=== PATIENT | female | born 1985 | race Caucasian/White ===

== ENCOUNTER → 2016-12-21 | Outpatient (CLI) | payer OTHER ==
[~2016-12-21] MED LIST: HYDR-3240 PO; IBUP-1222 PO; PNV91TAB3 PO
[2016-12-21 07:52] LABS: HEMATOCRIT 37.6 % (34.6-47.8); HEMOGLOBIN 12.7 g/dL (11.7-16.4); WHITE BLOOD COUNT 7.1 x10^3/uL (3.4-10)
[2016-12-21 08:18] LABS: HIV 1&2 ANTIBODY SCREEN Nonreactive (Nonreactive); HIV-1 p24 ANTIGEN Nonreactive (Nonreactive)
== END | disposition home or self-care (01) ==
LOC: LAB 07:27
PROVIDERS: ATTEND Nurse Practitioner Obstetrics & Gynecology
DX: Z34.81 Encounter for supervision of other normal pregnancy, first trimester (principal)
CPT/HCPCS: 36415; 85025; 86592; 86703; 86762; 86850; 86900; 87086; 87340; 87899; G0435

== ENCOUNTER 2017-07-07 10:25 | Inpatient (IN) | payer OTHER ==
[2017-07-07] MEDS ORDERED: D5%-LACTATED RINGERS 1,000 ML IV SCH (11:48)
[2017-07-07] MEDS ORDERED: OXYTOCIN 30U/ 0.9% NaCL 500ML 500 ML IV ONE (11:48)
[2017-07-07] MEDS ORDERED: ONDANSETRON 2MG/ML, 2ML IVPush PRN (12:00)
[2017-07-07] MEDS ORDERED: FENTANYL PF 100 MCG/2ML IV PRN (12:00)
[2017-07-07] MEDS ORDERED: FENTANYL PF 100 MCG/2ML IVPush PRN (12:00)
[2017-07-07] MEDS: LACTATED RINGERS 1,000 ML IV SCH ×2 (12:12→16:29)
[2017-07-07 12:13] LABS: BASOPHILS # (AUTO) 0.02 x10^3/uL (0-0.1); BASOPHILS % (AUTO) 0 % (0-1); EOSINOPHILS # (AUTO) 0.04 x10^3/uL (0-0.4); EOSINOPHILS % (AUTO) 0 % (1-7); LYMPHOCYTES # (AUTO) 1.26 x10^3/uL (1-3.4); LYMPHOCYTES % (AUTO) 12 % (22-44); MD NO; MEAN CORPUSCULAR HEMOGLOBIN 30.3 pg (27.0-34.8); MEAN CORPUSCULAR HGB CONC 33.8 g/dL (32.4-35.8); MEAN CORPUSCULAR VOLUME 89.7 fL (80-100); MEAN PLATELET VOLUME 11.6 fL (7.4-10.4); MONOCYTES # (AUTO) 0.54 x10^3/uL (0.2-0.8); MONOCYTES % (AUTO) 5 % (2-9); NEUTROPHILS # (AUTO) 9.13 x10^3/uL (1.8-6.8); NEUTROPHILS % (AUTO) 83 % (42-75); PLATELET COUNT 214 x10^3/uL (130-400); RED BLOOD COUNT 4.46 x10^6/uL (3.82-5.3); RED CELL DISTRIBUTION WIDTH 13.1 % (9.6-15.2)
[2017-07-07] MEDS ORDERED: LIDOCAINE 1%, 20ML ONE (12:30)
[2017-07-07] MEDS ORDERED: OXYTOCIN 30U/ 0.9% NaCL 500ML 500 ML ONE ×2 (12:30→16:26)
[2017-07-07] MEDS ORDERED: MISOPROSTOL 200 MCG TABLET ONE (12:30)
[2017-07-07] MEDS ORDERED: NEWBORN KIT ONE (12:30)
[2017-07-07] MEDS ORDERED: CALCIUM CARBONATE 500 MG TAB.CHEW PO PRN (15:00)
[2017-07-07] MEDS ORDERED: MISOPROSTOL 200 MCG TABLET PR PRN (15:00)
[2017-07-07] MEDS ORDERED: ONDANSETRON 2MG/ML, 2ML IV PRN (15:00)
[2017-07-07] MEDS ORDERED: ACETAMINOPHEN 325 MG TABLET PO PRN (15:00)
[2017-07-07] MEDS ORDERED: METHYLERGONOVINE 0.2 MG/ML IM PRN (15:00)
[2017-07-07] MEDS ORDERED: HYDROcodone/APAP 5/325 TABLET PO PRN ×2 (15:00)
[2017-07-07] MEDS ORDERED: CARBOPROST TROMETHAMINE 250 MCG/ML, 1ML IM PRN (15:00)
[2017-07-07] MEDS: OXYTOCIN 30U/ 0.9% NaCL 500ML 500 ML IV SCH (16:29)
[2017-07-07 16:45] VITALS: BP 113/67
[2017-07-07 20:00] VITALS: BP 133/89
[2017-07-07] MEDS: DOCUSATE 100 MG CAPSULE PO PRN (21:05)
[2017-07-07 22:41] LABS: BASOPHILS # (AUTO) 0.02 x10^3/uL (0-0.1); BASOPHILS % (AUTO) 0 % (0-1); EOSINOPHILS # (AUTO) 0.02 x10^3/uL (0-0.4); EOSINOPHILS % (AUTO) 0 % (1-7); LYMPHOCYTES % (AUTO) 12 % (22-44); MD NO; MEAN CORPUSCULAR HEMOGLOBIN 30.1 pg (27.0-34.8); MEAN CORPUSCULAR HGB CONC 33.6 g/dL (32.4-35.8); MEAN CORPUSCULAR VOLUME 89.6 fL (80-100); MEAN PLATELET VOLUME 11.1 fL (7.4-10.4); MONOCYTES # (AUTO) 0.64 x10^3/uL (0.2-0.8); MONOCYTES % (AUTO) 5 % (2-9); NEUTROPHILS # (AUTO) 10.92 x10^3/uL (1.8-6.8); NEUTROPHILS % (AUTO) 83 % (42-75); PLATELET COUNT 178 x10^3/uL (130-400); RED BLOOD COUNT 4.07 x10^6/uL (3.82-5.3); RED CELL DISTRIBUTION WIDTH 12.8 % (9.6-15.2)
[2017-07-08] MEDS: OXYTOCIN 30U/ 0.9% NaCL 500ML 500 ML IV SCH ×2 (00:45→10:45)
[2017-07-08] MEDS: IBUPROFEN 600 MG TABLET PO PRN ×2 (03:12→08:03)
[2017-07-08 03:19] VITALS: BP 114/64
[2017-07-08] MEDS: DOCUSATE 100 MG CAPSULE PO PRN (08:02)
[2017-07-08 08:22] VITALS: BP 126/52
[2017-07-08] MEDS ORDERED: PRENATAL VIT/IRON/FA 1 EACH TABLET PO SCH (09:00)
[2017-07-08 13:00] VITALS: BP 137/72
== END 2017-07-08 16:48 | disposition home or self-care (01) | DRG 775 ==
LOC: LDOP 10:25 → LDIP 10:55 → 2NW 16:36
PROVIDERS: ADMIT Obstetrics & Gynecology; ATTEND Obstetrics & Gynecology
PROC: 10E0XZZ Delivery of Products of Conception, External Approach (ICD-10-PCS; principal; 2017-07-07)
PROC: 10907ZC Drainage of Amniotic Fluid, Therapeutic from Products of Conception, Via Natural or Artificial Opening (ICD-10-PCS; 2017-07-07)
PROC: 3E033VJ Introduction of Other Hormone into Peripheral Vein, Percutaneous Approach (ICD-10-PCS; 2017-07-07)
DX: O69.1XX0 Labor and delivery complicated by cord around neck, with compression, not applicable or unspecified (principal); O77.0 Labor and delivery complicated by meconium in amniotic fluid; Z37.0 Single live birth; Z3A.39 39 weeks gestation of pregnancy
CPT/HCPCS: 36415; 85025; 86850; 86900; J2590; J7120

== ENCOUNTER 2018-09-12 09:21 | Outpatient (CLI) | payer OTHER ==
[2018-09-12] MEDS ORDERED: [UNRECOGNIZED DRUG - OTHER] PO (09:43)
== END 2018-09-12 23:59 | disposition home or self-care (01) ==
LOC: STAR 09:21
PROVIDERS: ATTEND Orthopaedic Surgery
DX: Z02.9 Encounter for administrative examinations, unspecified (principal)

== ENCOUNTER 2018-09-19 07:09 | Day surgery (SDC) | payer OTHER ==
[~2018-09-19] VITALS: Ht 170.2 cm; Wt 69.0 kg
[~2018-09-19 07:09] MED LIST changes: +[UNRECOGNIZED DRUG - OTHER] PO
[2018-09-19 07:18] VITALS: BP 120/84
[2018-09-19] MEDS ORDERED: BUPIVACAINE/EPI 0.5% 1:200K ONE (07:19)
[2018-09-19] MEDS ORDERED: LACTATED RINGERS 1,000 ML IV SCH (07:48)
[2018-09-19] MEDS ORDERED: LIDOCAINE-MPF 2% ,5ML ONE (08:33)
[2018-09-19] MEDS ORDERED: MIDAZOLAM 1 MG/ML, 2ML ONE (08:33)
[2018-09-19] MEDS ORDERED: PROPOFOL 10 MG/ML, 20ML ONE (08:33)
[2018-09-19] MEDS ORDERED: CEFAZOLIN 1,000 MG ONE ×2 (08:33)
[2018-09-19] MEDS ORDERED: DEXAMETHASONE 4 MG/ML, 1ML ONE ×2 (08:33)
[2018-09-19] MEDS ORDERED: FENTANYL PF 100 MCG/2ML ONE ×2 (08:33→10:28)
[2018-09-19] MEDS ORDERED: ONDANSETRON 2MG/ML, 2ML IV PRN (09:00)
[2018-09-19] MEDS ORDERED: HYDROmorphone 2 MG/ML, 1ML IVPush PRN (09:00)
[2018-09-19] MEDS ORDERED: ACETAMINOPHEN 325 MG TABLET PO PRN (09:00)
[2018-09-19] MEDS ORDERED: METOCLOPRAMIDE 5 MG/ML, 2ML IV PRN (09:00)
[2018-09-19] MEDS ORDERED: KETOROLAC 30 MG/1 ML IV PRN (09:00)
[2018-09-19] MEDS ORDERED: LORazepam 2 MG/ML, 1ML IVPush PRN (09:00)
[2018-09-19] MEDS ORDERED: ALBUTEROL/IPRATROPIUM 2.5MG/0.5MG, 3 ML NPPB PRN (09:00)
[2018-09-19] MEDS ORDERED: MEPERIDINE/PF 25MG/0.5ML IVPush PRN (09:00)
[2018-09-19] MEDS ORDERED: ACETAMINOPHEN 500 MG TABLET PO ONE (09:00)
[2018-09-19] MEDS ORDERED: OXYcodone 5 MG/5 ML ORAL.SOL UDC PO PRN (09:00)
[2018-09-19] MEDS ORDERED: KETOROLAC 30 MG/1 ML ONE (09:04)
[2018-09-19] MEDS ORDERED: ONDANSETRON 2MG/ML, 2ML ONE (09:24)
[2018-09-19] MEDS ORDERED: HYDROcodone/APAP 7.5-325MG/15ML UDC ONE ×2 (10:15→10:27)
[2018-09-19] MEDS: HYDROcodone/APAP 7.5-325MG/15ML UDC PO PRN ×2 (10:17→10:34)
[2018-09-19] MEDS: FENTANYL PF 100 MCG/2ML IV PRN ×2 (10:35→10:40)
== END 2018-09-19 12:50 | disposition home or self-care (01) ==
LOC: OUT 07:09
PROVIDERS: ATTEND Orthopaedic Surgery
DX: T84.84XA Pain due to internal orthopedic prosthetic devices, implants and grafts, initial encounter (principal); Z82.3 Family history of stroke; Z82.61 Family history of arthritis; Y83.8 Other surgical procedures as the cause of abnormal reaction of the patient, or of later complication, without mention of misadventure at the time of the procedure
CPT/HCPCS: 20680; 81025; J0690; J1100; J1885; J2250; J2405; J2704; J3010; J7120

== ENCOUNTER 2019-04-12 07:21 | Outpatient (CLI) | payer OTHER | END 2019-04-12 23:59 | disposition home or self-care (01) | LOC: LAB 07:21 | PROVIDERS: ATTEND Obstetrics & Gynecology | DX: Z02.9 Encounter for administrative examinations, unspecified (principal) ==

== ENCOUNTER 2019-11-03 05:48 | Inpatient (IN) | payer OTHER ==
[~2019-11-03] VITALS: Ht 170.2 cm; Wt 84.1 kg
[2019-11-03] MEDS ORDERED: LACTATED RINGERS 1,000 ML IV SCH (06:20)
[2019-11-03] MEDS ORDERED: OXYTOCIN 30U/ 0.9% NaCL 500ML 500 ML IV ONE (06:20)
[2019-11-03] MEDS ORDERED: NEWBORN KIT ONE (06:24)
[2019-11-03] MEDS ORDERED: MISOPROSTOL 200 MCG TABLET ONE (06:24)
[2019-11-03] MEDS ORDERED: LIDOCAINE 1%, 20ML ONE (06:24)
[2019-11-03] MEDS ORDERED: OXYTOCIN 30U/ 0.9% NaCL 500ML 500 ML ONE ×2 (06:24→08:04)
[2019-11-03] MEDS ORDERED: FENTANYL PF 100 MCG/2ML IV PRN (06:30)
[2019-11-03] MEDS ORDERED: FENTANYL PF 100 MCG/2ML IVPush PRN (06:30)
[2019-11-03] MEDS ORDERED: TERBUTALINE 1 MG/ML, 1ML IVPush PRN (06:30)
[2019-11-03] MEDS ORDERED: TERBUTALINE 1 MG/ML, 1ML SQ PRN (06:30)
[2019-11-03 07:11] LABS: BASOPHILS # (AUTO) 0.02 x10^3/uL (0-0.1); BASOPHILS % (AUTO) 0 % (0-1); EOSINOPHILS % (AUTO) 0 % (1-7); LYMPHOCYTES # (AUTO) 1.14 x10^3/uL (1-3.4); LYMPHOCYTES % (AUTO) 10 % (22-44); MD NO; MEAN CORPUSCULAR HEMOGLOBIN 29.6 pg (27.0-34.8); MEAN CORPUSCULAR HGB CONC 32.4 g/dL (32.4-35.8); MEAN CORPUSCULAR VOLUME 91.5 fL (80-100); MEAN PLATELET VOLUME 10.7 fL (7.4-10.4); MONOCYTES # (AUTO) 0.33 x10^3/uL (0.2-0.8); MONOCYTES % (AUTO) 3 % (2-9); NEUTROPHILS # (AUTO) 10.01 x10^3/uL (1.8-6.8); NEUTROPHILS % (AUTO) 87 % (42-75); PLATELET COUNT 180 x10^3/uL (130-400); RED BLOOD COUNT 4.56 x10^6/uL (3.82-5.3); RED CELL DISTRIBUTION WIDTH 12.9 % (9.6-15.2)
[2019-11-03] MEDS: OXYTOCIN 30U/ 0.9% NaCL 500ML 500 ML IV SCH ×2 (07:51→17:51)
[2019-11-03] MEDS ORDERED: CARBOPROST TROMETHAMINE 250 MCG/ML, 1ML IM PRN (08:00)
[2019-11-03] MEDS ORDERED: HYDROcodone/APAP 5/325 TABLET PO PRN ×2 (08:00)
[2019-11-03] MEDS ORDERED: ONDANSETRON 2MG/ML, 2ML IV PRN (08:00)
[2019-11-03] MEDS ORDERED: IBUPROFEN 600 MG TABLET PO PRN (08:00)
[2019-11-03] MEDS ORDERED: DOCUSATE 100 MG CAPSULE PO PRN (08:00)
[2019-11-03] MEDS ORDERED: METHYLERGONOVINE 0.2 MG/ML IM PRN (08:00)
[2019-11-03] MEDS ORDERED: MISOPROSTOL 200 MCG TABLET PR PRN (08:00)
[2019-11-03] MEDS ORDERED: ACETAMINOPHEN 325 MG TABLET PO PRN (08:00)
[2019-11-03] MEDS ORDERED: SIMETHICONE 80 MG CHEW TAB PO PRN (08:00)
[2019-11-03] MEDS ORDERED: MAGNESIUM HYDROXIDE 8%, 30ML UDC PO PRN (08:00)
[2019-11-03] MEDS ORDERED: IBUPROFEN 600 MG TABLET ONE (08:04)
[2019-11-03] MEDS ORDERED: PLEASE ENTER ALLERGIES MC SCH (08:30)
[2019-11-03] MEDS ORDERED: PRENATAL VIT/IRON/FA 1 EACH TABLET PO SCH (09:00)
[2019-11-03 09:45] VITALS: BP 121/65
[2019-11-03 12:10] VITALS: BP 126/77
[2019-11-03 14:59] LABS: BASOPHILS # (AUTO) 0.01 x10^3/uL (0-0.1); BASOPHILS % (AUTO) 0 % (0-1); EOSINOPHILS % (AUTO) 0 % (1-7); LYMPHOCYTES # (AUTO) 1.03 x10^3/uL (1-3.4); LYMPHOCYTES % (AUTO) 8 % (22-44); MD NO; MEAN CORPUSCULAR HEMOGLOBIN 29.6 pg (27.0-34.8); MEAN CORPUSCULAR HGB CONC 32.2 g/dL (32.4-35.8); MEAN CORPUSCULAR VOLUME 91.8 fL (80-100); MEAN PLATELET VOLUME 11.3 fL (7.4-10.4); MONOCYTES # (AUTO) 0.25 x10^3/uL (0.2-0.8); MONOCYTES % (AUTO) 2 % (2-9); NEUTROPHILS # (AUTO) 11.72 x10^3/uL (1.8-6.8); NEUTROPHILS % (AUTO) 90 % (42-75); PLATELET COUNT 191 x10^3/uL (130-400); RED BLOOD COUNT 4.34 x10^6/uL (3.82-5.3); RED CELL DISTRIBUTION WIDTH 12.8 % (9.6-15.2)
[2019-11-03 18:09] VITALS: BP 112/69
[2019-11-03 21:11] VITALS: BP 128/79
[2019-11-03 23:32] VITALS: BP 135/86
[2019-11-04] MEDS: OXYTOCIN 30U/ 0.9% NaCL 500ML 500 ML IV SCH (03:51)
[2019-11-04 04:44] VITALS: BP 124/66
[2019-11-04 07:50] VITALS: BP 117/78
== END 2019-11-04 12:40 | disposition home or self-care (01) | DRG 807 ==
LOC: LDOP 05:48 → LDIP 06:21 → 2NW 09:22
PROVIDERS: ADMIT Obstetrics & Gynecology; ATTEND Obstetrics & Gynecology
PROC: 10E0XZZ Delivery of Products of Conception, External Approach (ICD-10-PCS; principal; 2019-11-03)
PROC: 10907ZC Drainage of Amniotic Fluid, Therapeutic from Products of Conception, Via Natural or Artificial Opening (ICD-10-PCS; 2019-11-03)
DX: O69.81X0 Labor and delivery complicated by cord around neck, without compression, not applicable or unspecified (principal); Z37.0 Single live birth; Z3A.40 40 weeks gestation of pregnancy
CPT/HCPCS: 36415; 85025; 86592; 86850; 86900; G0378; J2590